=== PATIENT | female | born 1970 | race Caucasian/White ===

== ENCOUNTER 2019-03-11 06:00 | Day surgery (SDC) | payer MEDICARE, OTHER ==
[2019-03-11] MEDS ORDERED: BALANCED SALT IRRIG SOLN COMB1 500 ML, EPINEPHRINE-PF 1:1000 0.5 MG IO ONE ×2 (07:00)
--- NOTE | 2019-03-11 07:30 | NUR ---
patient no show, case cancelled. Dr hemphill, anesthesiologist and surgery staff made aware.
== END 2019-03-11 06:05 | disposition left against medical advice (07) ==
LOC: DS 06:00
PROVIDERS: ATTEND Ophthalmology
DX: Z75.3 Unavailability and inaccessibility of health-care facilities (principal)
CPT/HCPCS: A4663; J0171